=== PATIENT | male | born 1950 | race Caucasian/White ===

== ENCOUNTER 2017-02-09 11:32 | Outpatient (CLI) | payer MEDICARE, BC ==
[2017-02-09 14:56] VITALS: BP 130/76
--- NOTE | 2017-02-10 07:52 | CARDIAC PROCEDURE NOTE ---
DATE OF SERVICE: 02/09/2017 00:00:00 PROTOCOL: Modified Nathan. TIME: 15 minutes. ALDO: Less than -20. HEART RATE RESPONSE: 67 to maximum computer reading 175. It was in the 130s by EKG. Blood pressure response: 130/76 to maximum 162/70. EXAM CHANGES: None. REASON FOR STOPPING TEST: Patient's target heart rate had been exceeded. He says he could have kept going. ARRHYTHMIAS: Multiple PVCs detected. ST-SEGMENT CHANGES: There were ST-segment depressions of 1 mm or less in leads II, III, and aVF, and V3 through V5 at maximal exercise. SYMPTOMS: Patient did report an aching in his chest toward the beginning of the treadmill test, whic h then resolved. IMPRESSION: Mild symptoms, which resolved with further exercise. No significant EKG changes. CONCLUSION: Low-risk ETT. JOB #: [id number] EXT JOB #:[id number]
== END 2017-02-09 11:33 | disposition home or self-care (01) ==
LOC: DI 11:32
PROVIDERS: ATTEND Internal Medicine
DX: R00.2 Palpitations (principal); I49.3 Ventricular premature depolarization; I25.10 Atherosclerotic heart disease of native coronary artery without angina pectoris; R07.9 Chest pain, unspecified

== ENCOUNTER 2017-04-01 08:13 | Outpatient (CLI) | payer MEDICARE, BC | END 2017-04-01 08:14 | disposition home or self-care (01) | LOC: DI 08:13 | PROVIDERS: ATTEND Internal Medicine | DX: I49.3 Ventricular premature depolarization (principal); R07.89 Other chest pain; R00.1 Bradycardia, unspecified | CPT/HCPCS: 93306 ==

== ENCOUNTER 2017-06-01 11:02 | Day surgery (SDC) | payer MEDICARE, BC ==
[2017-06-01] MEDS ORDERED: LACTATED RINGERS 1,000 ML IV ONE (11:34)
[2017-06-01] MEDS ORDERED: MIDAZOLAM 2 MG/2 ML VIAL IVP ONE (13:44)
[2017-06-01] MEDS ORDERED: fentaNYL 100 MCG/2 ML VIAL IVP ONE (13:44)
[2017-06-01 13:58] VITALS: BP 107/59
== END 2017-06-01 11:03 | disposition home or self-care (01) ==
LOC: SDS 11:02
PROVIDERS: ATTEND Surgery
PROC: 0DBN8ZZ Excision of Sigmoid Colon, Via Natural or Artificial Opening Endoscopic (ICD-10-PCS; principal; 2017-06-01 12:00)
DX: Z12.11 Encounter for screening for malignant neoplasm of colon (principal); K63.5 Polyp of colon; K64.8 Other hemorrhoids; K57.30 Diverticulosis of large intestine without perforation or abscess without bleeding; I25.10 Atherosclerotic heart disease of native coronary artery without angina pectoris; Z95.5 Presence of coronary angioplasty implant and graft; E78.5 Hyperlipidemia, unspecified
CPT/HCPCS: 45380; J7120

== ENCOUNTER 2017-06-18 13:55 | Outpatient (CLI) | payer MEDICARE, BC ==
[2017-06-18 14:19] LABS: BASOPHILS % (AUTO) 0.8 %; EOSINOPHILS # (AUTO) 0.2 10^3/uL (0.0-0.7); EOSINOPHILS % (AUTO) 4.6 %; HCT - HEMATOCRIT 42.2 % (42.0-52.0); HGB - HEMOGLOBIN 14.3 g/dL (14.0-18.0); LYMPHOCYTES % (AUTO) 25.8 %; MEAN CORPUSCULAR HEMOGLOBIN 31.8 pg (27.0-31.0); MEAN CORPUSCULAR VOLUME 93.5 fL (80.0-94.0); MEAN PLATELET VOLUME 7.3 fL (7.4-11.4); MONOCYTES # (AUTO) 0.5 10^3/uL (0.0-1.0); MONOCYTES % (AUTO) 12.4 %; NEUTROPHILS # (AUTO) 2.1 10^3/uL (1.5-6.6); NEUTROPHILS % (AUTO) 56.4 %; NUCLEATED RED BLOOD CELLS AUTO 0.1 /100WBC; RED BLOOD COUNT 4.51 10^6/uL (4.70-6.10); RED CELL DISTRIBUTION WIDTH 13.5 % (12.0-15.0); UNCORRECTED WHITE BLOOD COUNT 3.8 x10^3/uL; WHITE BLOOD COUNT 3.8 x10^3/uL (4.8-10.8)
[2017-06-18 14:25] LABS: INR 0.9 (0.8-1.2); PT - PROTHROMBIN TIME 10.3 secs (9.9-12.6)
[2017-06-18 14:39] LABS: ALBUMIN/GLOBULIN RATIO 1.3 (1.0-2.2); BILIRUBIN,TOTAL 0.8 mg/dL (0.2-1.0); CALCIUM 9.8 mg/dL (8.5-10.3); CREATININE 1.2 mg/dL (0.6-1.2); POTASSIUM 4.2 mmol/L (3.5-5.0); TOTAL PROTEIN 7.8 g/dL (6.7-8.2)
== END 2017-06-18 13:56 | disposition home or self-care (01) ==
LOC: LAB 13:55
PROVIDERS: ATTEND Internal Medicine Cardiovascular Disease
DX: Z01.810 Encounter for preprocedural cardiovascular examination (principal); Z79.899 Other long term (current) drug therapy
CPT/HCPCS: 36415; 80053; 85025; 85610

== ENCOUNTER 2018-02-11 12:40 | Outpatient (CLI) | payer MEDICARE, BC ==
--- NOTE | 2018-02-11 18:26 | CARDIAC PROCEDURE NOTE ---
DATE OF SERVICE: 02/11/2018 Physician: ITZEL Aggarwal PCP: Brittnee Gomez M.D. DUMP ATTENDANT: Tushar Stephens M.D. PROCEDURE: ETT. PROCEDURE SYMPTOMS: Chest pain. PREVIOUS CARDIAC PROCEDURES: Yes. CURRENT SYMPTOMATOLOGY: None. CLINICAL HISTORY: A 67-year-old male with known coronary artery disease and stents. INITIAL RESTING VITAL SIGNS: BP 124/72, heart rate 41, height 66 inches, weight 150 pounds, BMI 24.21. PROCEDURE AND FINDINGS: Patient identity and date verified. Consent signed. The patient performed treadmill exercise using a modified Nathan treadmill with no treadmill elevation due to his arthritic heel. He completed 17 minutes 5 seconds and an estimated workload of 9.29 metabolic equivalent. His maximal blood pressure was 144/78 with a heart rate of 141 beats per minute or 92% of maximum predicted heart rate for age. The blood pressure response to exercise was within normal limits. The patient stopped because we achieved 80% heart rate. At peak exercise, the patient rated the maximal Miguel scale for rating perceived exertion as "somewhat hard." The resting ECG demonstrated normal sinus rhythm with lead II and aVF inverted T waves. Maximum ST segment depression was less than 0.5 and upsloping with exercise. He had occasional to frequent PVC ectopy. FINAL IMPRESSION 1. Good quality test until he started running and those test strips are difficult to interpret. 2. Negative stress electrocardiogram for ischemia by electrocardiographic criteria. 3. Nondiagnostic stress test clinically for angina. 4. Premature ventricular contraction ectopy. 5. [employer] functional class I. TD: 02/11/2018 15:35
[2018-02-11 19:15] VITALS: BP 120/80
== END 2018-02-11 12:41 | disposition home or self-care (01) ==
LOC: DI 12:40
PROVIDERS: ATTEND Internal Medicine Cardiovascular Disease
DX: R07.9 Chest pain, unspecified (principal); I25.10 Atherosclerotic heart disease of native coronary artery without angina pectoris; Z95.5 Presence of coronary angioplasty implant and graft
CPT/HCPCS: 93017

== ENCOUNTER 2018-05-03 18:52 | Outpatient (CLI) | payer MEDICARE, BC | END 2018-05-03 18:53 | disposition critical access hospital (66) | LOC: EMS 18:52 | PROVIDERS: ATTEND Surgery | DX: R55 Syncope and collapse (principal); R47.9 Unspecified speech disturbances; S00.91XA Abrasion of unspecified part of head, initial encounter; W18.30XA Fall on same level, unspecified, initial encounter; Y93.H1 Activity, digging, shoveling and raking; Y92.008 Other place in unspecified non-institutional (private) residence as the place of occurrence of the external cause | CPT/HCPCS: A0425; A0427 ==

== ENCOUNTER 2018-05-03 19:04 | Emergency (ER) | payer MEDICARE, BC ==
--- NOTE | 2018-05-03 19:15 | ED Physician Documentation ---
PD HPI Fall - Stated complaint Stated Complaint: ALOC - History obtained from History obtained from: Family (), EMS - History of Present Illness Mechanism of injury: Unknown (67-year-old gentleman with history of coronary disease on Plavix. His left at 5:00. He was drinking a little bit but she does not think more than normal. He may have fallen, he was working outside in the driveway. She found him laying in the driveway. He was alert and cooperative and follows simple commands but pretty much nonverbal.) Review of Systems Unable to obtain: Confused PD PAST MEDICAL HISTORY - Past Medical History Cardiovascular: High cholesterol, Atrial fibrillation GI: Other : Benign prostate hypertrophy HEENT: Chronic sinusitis Musculoskeletal: Osteopenia, Chronic back pain - Past Surgical History Ortho: Other Cardiovascular: Coronary stent - Present Medications Home Medications: Ambulatory Orders Medication Instructions Recorded Confirmed Acyclovir [Zovirax] 800 mg PO DAILY PRN 05/29/17 06/01/17 Ibuprofen 800 mg PO Q8HR 05/29/17 06/01/17 Nitroglycerin [Nitrostat] 0.4 mg SL ONCE 05/29/17 05/29/17 Temazepam [Restoril] 30 mg PO DAILY 05/29/17 06/01/17 - Allergies Allergies/Adverse Reactions: Allergies Allergy/AdvReac Type Severity Reaction Status Date / Time niacin AdvReac Unknown Verified 05/03/18 19:08 Cdqsrmt-Lom-Ymk Reductase AdvReac Unknown Verified 05/03/18 19:08 Inhibitor PD ED PE NORMAL - Vitals Vital signs reviewed: Yes - General General: Other (He is alert and in a c-collar. He is able to state his name, but cannot state the month or year. He does follow simple commands.) - HEENT HEENT: PERRL, Other (Some difficulty with extraocular movements, does not seem to lateralize but difficulty tracking. He has scrapes and dried blood over the right side of the forehead) - Neck Neck: No bony TTP (But maintained in a c-collar pending imaging given potential trauma) - Cardiac Cardiac: RRR, No murmur - Respiratory Respiratory: No respiratory distress, Clear bilaterally - Abdomen Abdomen: Normal bowel sounds, Soft, Non tender - Back Back: No CVA TTP, No spinal TTP - Derm Derm: Normal color, Warm and dry - Extremities Extremities: No deformity, No tenderness to palpate, Normal ROM s pain - Neuro Neuro: alterations supervisor 2-12 intact, Other (He is alert but minimally verbal. He is able to state his name, his first name anyway. Other than that he really is unable to verbalize anything. He moves all 4 extremities with good strength and follows commands in all 4 extremities.) Eye Opening: Spontaneous Motor: Obeys Commands Verbal: Inappropriate GCS Score: 13 Results - Vitals Vitals: Oxygen O2 Source Room air - Rads (name of study) CT Head Radiology: EMP read contemporaneously (Left-sided subdural subarachnoid and parenchymal hemorrhage with a little bit of right-sided subarachnoid hemorrhage. There is a coronally oriented fracture through the high posterior parietal timmy naina.) CT Cspien Radiology: EMP read contemporaneously (No C-spine fracture but there is a posterior right third rib fracture and a small right-sided pneumothorax) Ct Chest Radiology: EMP read contemporaneously (Moderate right-sided pneumothorax measuring 3.9 cm anteriorly with multiple right posterior and posterolateral rib fractures and a right inferior scapular fracture) 1v chest post chest tube Radiology: EMP read contemporaneously (Much improved appearance of pneumothorax) Procedures - Chest Tube (location) right anterior axillary line Chest tube preparation: Consent obtained (verbal from ), Sterile prep and drape Chest tube location: Right, Anterior axillary line Chest tube anesthesia: Lidocaine (8ml) Chest tube return: Air Chest tube after care: Confirmed with xray, Pt tolerated well PD MEDICAL DECISION MAKING - ED course ED course: 67-year-old gentleman after apparent fall with right-sided bruising. He is pretty much aphasic here but cooperative. He was taken directly over to CT as a trauma code which to my eye demonstrates left-sided likely traumatic subarachnoid hemorrhage and [facility] was paged for transfer at 7:25 PM. He was accepted by Dr. West to [facility] ED via airlift and they were mobilized., Dr. West recommended platelets, we do not have platelets on site and its about a 6-hour timeframe to get them. - Critical Care Time(min): 45 Time Includes: Direct patient care, Review records, Reassess patient, Document care, Coordinate care, Medical consult, Family consult for tx dec Data interpretation: Labs Procedures included in critical care time: Peripheral IV Procedures excluded from critical care time: Chest tube - Sepsis Event Vital Signs: Oxygen O2 Source Room air Departure - Departure Disposition: 02 Transfer Acute Care Hosp Clinical Impression: Subarachnoid hemorrhage, Subdural hemorrhage Rib fracture Qualifiers: Encounter type: initial encounter Rib fracture type: single rib Fracture type: closed Laterality: right Qualified Code(s): S22.31XA - Fracture of one rib, right side, initial encounter for closed fracture Pneumothorax Qualifiers: Pneumothorax type: traumatic Encounter type: initial encounter Qualified Code(s): S27.0XXA - Traumatic pneumothorax, initial encounter Alcohol intoxication Qualifiers: Complication of substance-induced condition: uncomplicated Qualified Code(s): F10.920 - Alcohol use, unspecified with intoxication, uncomplicated Right scapula fracture Qualifiers: Encounter type: initial encounter Scapula location: unspecified part of scapula Condition: Critical
[2018-05-03 19:25] LABS: BASOPHILS % (AUTO) 0.6 %; EOSINOPHILS # (AUTO) 0.2 10^3/uL (0.0-0.7); EOSINOPHILS % (AUTO) 5.6 %; HGB - HEMOGLOBIN 13.5 g/dL (14.0-18.0); LYMPHOCYTES # (AUTO) 1.6 10^3/uL (1.5-3.5); LYMPHOCYTES % (AUTO) 38.7 %; MEAN CORPUSCULAR HEMOGLOBIN 32.6 pg (27.0-31.0); MEAN CORPUSCULAR HGB CONC 34.2 g/dL (32.0-36.0); MEAN CORPUSCULAR VOLUME 95.4 fL (80.0-94.0); MEAN PLATELET VOLUME 7.2 fL (7.4-11.4); MONOCYTES # (AUTO) 0.5 10^3/uL (0.0-1.0); MONOCYTES % (AUTO) 11.5 %; NEUTROPHILS # (AUTO) 1.8 10^3/uL (1.5-6.6); NEUTROPHILS % (AUTO) 43.6 %; PLT - PLATELET COUNT 195 10^3/uL (130-450); RED BLOOD COUNT 4.15 10^6/uL (4.70-6.10); WHITE BLOOD COUNT 4.2 x10^3/uL (4.8-10.8)
[2018-05-03 19:31] LABS: INR 0.9 (0.8-1.2)
--- NOTE | 2018-05-03 19:42 | CT Report ---
Reason: trauma, fall Procedure Date: 05/03/2018 Accession Number: [id number] / [id number] Procedure: CT - Cervical Spine W/O CPT Code: FULL RESULT: EXAM: CT CERVICAL SPINE WITHOUT CONTRAST DATE: 05/03/2018 07:32 PM. HISTORY: Trauma, fall. COMPARISONS: None. TECHNIQUE: Thin-section axial images were acquired of the cervical spine without contrast. Post-processing: Coronal and sagittal reformats. Other: None. In accordance with CT protocol optimization, one or more of the following dose reduction techniques were utilized for this exam: automated exposure control, adjustment of mA and/or KV based on patient size, or use of iterative reconstructive technique. FINDINGS: Alignment: No evidence of dislocation. Bones: No evidence of cervical spine fracture. There is comminuted fracture of the posterior right third rib. Interspace Levels/Facets: There is mild mid and lower cervical spine degenerative disease. Spinal canal: No significant abnormalities are seen. Other: No evidence of prevertebral soft tissue swelling. There is a small right pneumothorax. IMPRESSION: 1. No evidence of cervical spine fracture or dislocation. 2. There is comminuted fracture through the posterior right third rib. There is a small right-sided pneumothorax. RADIA
--- NOTE | 2018-05-03 19:49 | CT Report ---
Reason: trauma, fall Procedure Date: 05/03/2018 Accession Number: [id number] / [id number] Procedure: CT - Head W/O CPT Code: FULL RESULT: EXAM: CT HEAD EXAM DATE: 05/03/2018 07:30 PM. CLINICAL HISTORY: Trauma, fall. COMPARISON: None. TECHNIQUE: Multiaxial CT images were obtained from the foramen magnum to the vertex. Reformats: Sagittal and coronal. IV contrast: None. In accordance with CT protocol optimization, one or more of the following dose reduction techniques were utilized for this exam: automated exposure control, adjustment of mA and/or KV based on patient size, or use of iterative reconstructive technique. FINDINGS: Parenchyma: There are areas of left temporal, frontal, and parietal contusion. No clearly acute loss of hernandez-white matter differentiation. There is no evidence of significant mass-effect. Extraaxial Spaces: There is a small amount of left holohemispheric subdural hematoma with a maximal thickness of approximately 0.4 cm. There are small amounts of left frontal and parietal subarachnoid hemorrhage. Ventricles: Normal in size and position. Sinuses and Orbits: Imaged paranasal sinuses, orbits, and mastoids show no significant abnormality. Bones: There is coronally oriented fracture extending through the parietal bones. Other: There is marked posterior scalp soft tissue swelling. IMPRESSION: 1. Mix of left-sided subdural, subarachnoid, and parenchymal hemorrhage within the temporal, frontal, and high parietal regions. Subdural thickness is up to 0.4 cm. There is a small amount of right-sided subarachnoid hemorrhage. 2. There is no evidence of significant mass-effect at this time. 3. There is posterior scalp soft tissue swelling. There is coronally oriented fracture extending through the high posterior parietal bones. RADIA The above findings were discussed with Richard Redman by Dr. Radha Armendariz at 19:48 hrs on 05/03/18.
[2018-05-03 19:55] LABS: ALBUMIN 4.2 g/dL (3.2-5.5); ALBUMIN/GLOBULIN RATIO 1.5 (1.0-2.2); BILIRUBIN,TOTAL 0.5 mg/dL (0.2-1.0); CALCIUM 8.9 mg/dL (8.5-10.3); CREATININE 1.1 mg/dL (0.6-1.2)
[2018-05-03] MEDS ORDERED: IOPAMIDOL-300 100 ML VIAL ONE (20:07)
[2018-05-03] MEDS ORDERED: MORPHINE 10 MG/ML VIAL IVP STA (20:09)
[2018-05-03] MEDS ORDERED: LIDOCAINE 1%-EPI 1:100000 30 ML MDV ONE (20:35)
[2018-05-03 20:50] VITALS: BP 153/85
[2018-05-03] MEDS ORDERED: IOPAMIDOL-300 100 ML VIAL IVP ONE (20:57)
--- NOTE | 2018-05-03 21:05 | CT Report ---
Reason: IV only, small ptx, rib frx Procedure Date: 05/03/2018 Accession Number: [id number] / [id number] Procedure: CT - Chest W/ CPT Code: FULL RESULT: EXAM: CT CHEST EXAM DATE: 05/03/2018 08:25 PM. CLINICAL HISTORY: IV only, small ptx, rib frx. COMPARISONS: None. TECHNIQUE: Routine helical CT imaging was performed through the chest. IV contrast: 100 cc Isovue-300. Reconstructions: Coronal and sagittal. In accordance with CT protocol optimization, one or more of the following dose reduction techniques were utilized for this exam: automated exposure control, adjustment of mA and/or KV based on patient size, or use of iterative reconstructive technique. FINDINGS: Lungs/Pleura: Right pneumothorax measuring about 3.9 cm at the right middle lobe level. Bibasilar atelectasis. Right subpleural nodule measuring 5 mm on series 3 image 33. Trace right pleural effusion. Otherwise clear. Mediastinum: Mild cardiomegaly. No pericardial effusion. At least 2 vessel coronary artery calcification. No lymphadenopathy. Bones: Right posterior third rib fracture. Right posterior to lateral fifth, sixth, and possibly seventh rib fractures. Fracture of right inferior scapular wing with comminution. Anterior vertebral body height loss of T4 and T5 appears old. Visualized Abdomen: See separate report. Other: Minimal sub-cutaneous emphysema posteriorly near the patient's fractures. IMPRESSION: 1. Moderate right pneumothorax measuring 3.9 cm anteriorly. Associated bibasilar atelectasis. 2. Multiple right posterior to posterolateral rib fractures and right inferior scapular fracture. 3. Mild cardiomegaly and other chronic or incidental findings. RADIA
--- NOTE | 2018-05-03 21:07 | XRAY Report ---
Reason: post chest tube Procedure Date: 05/03/2018 Accession Number: [id number] / [id number] Procedure: XR - Chest 1 View X-Ray CPT Code: 12399 FULL RESULT: EXAM: CHEST RADIOGRAPHY EXAM DATE: 05/03/2018 08:59 PM. CLINICAL HISTORY: Post chest tube. COMPARISON: None. TECHNIQUE: 1 view. FINDINGS: Lungs/Pleura: Trace remaining pneumothorax on the right following chest tube placement. No consolidation, definite effusion, or acute infiltrate. Mediastinum: Borderline cardiomegaly. Other: Right sixth and seventh rib fractures visible. Other fractures not well seen. IMPRESSION: 1. Resolving pneumothorax following chest tube placement. 2. Right sixth and seventh rib fractures. RADIA
--- NOTE | 2018-05-03 21:13 | CT Report ---
Reason: IV only, trauma Procedure Date: 05/03/2018 Accession Number: [id number] / [id number] Procedure: CT - Abdomen/Pelvis W/ CPT Code: FULL RESULT: EXAM: CT ABDOMEN AND PELVIS EXAM DATE: 05/03/2018 08:25 PM. CLINICAL HISTORY: Trauma, pain. COMPARISONS: None. TECHNIQUE: Routine helical CT imaging was performed through the abdomen and pelvis. IV contrast: ISOVUE 300 100mL. Enteric contrast: No. Reconstructions: Coronal and sagittal. In accordance with CT protocol optimization, one or more of the following dose reduction techniques were utilized for this exam: automated exposure control, adjustment of mA and/or KV based on patient size, or use of iterative reconstructive technique. FINDINGS: Lung Bases: See separate report. Liver: Normal. No masses. Gallbladder/Bile Ducts: Unremarkable. Spleen: Normal. Pancreas: Normal. Adrenal Glands: Normal. Kidneys: Normal. No masses or hydronephrosis. Peritoneal Cavity/Bowel: Mild to moderate colonic diverticulosis. No free fluid, free air or adenopathy. No masses or acute inflammatory process. The appendix is well visualized and normal. Pelvic Organs: Normal. The bladder and visualized pelvic organs are within normal limits. Vasculature: No aneurysms or other significant abnormality. Bones: No significant abnormality. Other: None. IMPRESSION: Mild to moderate diverticulosis. No acute disease. RADIA
--- NOTE | 2018-05-03 21:15 | CT Report ---
Reason: trauma, fall Procedure Date: 05/03/2018 Accession Number: [id number] / [id number] Procedure: CT - Lumbar Spine W/O CPT Code: FULL RESULT: EXAM: CT LUMBAR SPINE WITHOUT CONTRAST EXAM DATE: 05/03/2018 08:25 PM. CLINICAL HISTORY: Trauma, fall. COMPARISONS: None. TECHNIQUE: Thin-section axial images were acquired of the lumbar spine from T12 to S1 without contrast. Post-processing: Coronal and sagittal reformats. Other: None. In accordance with CT protocol optimization, one or more of the following dose reduction techniques were utilized for this exam: automated exposure control, adjustment of mA and/or KV based on patient size, or use of iterative reconstructive technique. FINDINGS: Alignment: No scoliosis or spondylolisthesis. Bones: 5 lumbar vertebrae. No fractures or bone lesions. Disk Levels/Facets: Disk space narrowing at L5-S1 with vacuum phenomenon. Other disk spaces well preserved. No significant degenerative changes. Musculature: Unremarkable. Other: See separate reports. IMPRESSION: No acute bony disease. RADIA
--- NOTE | 2018-05-03 21:33 | CT Report ---
Reason: trauma, fall Procedure Date: 05/03/2018 Accession Number: [id number] / [id number] Procedure: CT - Thoracic Spine W/O CPT Code: FULL RESULT: EXAM: CT THORACIC SPINE RECONSTRUCTIONS EXAM DATE: 05/03/2018 09:08 PM. CLINICAL HISTORY: Trauma, fall. COMPARISONS: CT chest abdomen pelvis performed concurrently. TECHNIQUE: Thin-section axial images were acquired of the thoracic spine from T1 (with partial exclusion of posterior elements) to T12 without additional contrast. Post-processing: Coronal and sagittal reformats. Other: None. In accordance with CT protocol optimization, one or more of the following dose reduction techniques were utilized for this exam: automated exposure control, adjustment of mA and/or KV based on patient size, or use of iterative reconstructive technique. FINDINGS: Alignment: Minimal left convex upper and right convex mid thoracic scoliosis. No subluxation. Mild upper thoracic kyphosis. Bones: Chronic-appearing mild anterior wedge compression deformities of T4 and T5 vertebral bodies without identified acute fracture line. Other vertebral bodies are normal in height. There is a minimally displaced fracture of the right posterior third rib. There is a minimally displaced fracture of the posterior lateral right fifth rib. There is a minimally displaced fracture of the right posterior lateral sixth rib. Disk Levels/Facets: Disk space heights are preserved. There is minimal anterior endplate osteophyte formation at T3-T4, T4-T5, and T5-T6. There is mild disk space calcification at T3-T4. Mild bilateral facet osteoarthritis at T3-T4. Musculature: Normal. No fatty atrophy. Other: Moderate right pneumothorax. Mild right and minimal left dependent atelectasis. IMPRESSION: 1. Mild anterior wedge compression deformities of T4 and T5 vertebral bodies which appear chronic. 2. No acute fracture is identified in the thoracic spine. 3. Minimally displaced fractures of the right posterior third and right posterior lateral fifth and sixth ribs. 4. Moderate right pneumothorax. RADIA
== END 2018-05-03 21:30 | disposition short-term general hospital (02) ==
LOC: EDUNIT# → ED 19:04
DX: I62.00 Nontraumatic subdural hemorrhage, unspecified (principal); I60.9 Nontraumatic subarachnoid hemorrhage, unspecified; S22.31XA Fracture of one rib, right side, initial encounter for closed fracture; S27.0XXA Traumatic pneumothorax, initial encounter; W19.XXXA Unspecified fall, initial encounter; F10.920 Alcohol use, unspecified with intoxication, uncomplicated; E78.00 Pure hypercholesterolemia, unspecified; I25.10 Atherosclerotic heart disease of native coronary artery without angina pectoris; Z95.5 Presence of coronary angioplasty implant and graft
CPT/HCPCS: 32551; 36415; 70450; 71045; 71260; 72125; 72128; 72131; 74177; 80053; 83690; 85025; 85610; 96374; 99284; 99291; Q9967; 80320; 99285

== ENCOUNTER 2018-06-07 09:49 | Emergency (ER) | payer MEDICARE, BC ==
--- NOTE | 2018-06-07 10:40 | CT Report ---
Reason: confusion Procedure Date: 06/07/2018 Accession Number: [id number] / [id number] Procedure: CT - Head W/O CPT Code: FULL RESULT: EXAM: CT HEAD EXAM DATE: 06/07/2018 10:12 AM. CLINICAL HISTORY: Confusion. COMPARISON: 05/03/2018 TECHNIQUE: Multiaxial CT images were obtained from the foramen magnum to the vertex. Reformats: Sagittal and coronal. IV contrast: None. In accordance with CT protocol optimization, one or more of the following dose reduction techniques were utilized for this exam: automated exposure control, adjustment of mA and/or KV based on patient size, or use of iterative reconstructive technique. FINDINGS: Parenchyma: No acute intraparenchymal hemorrhage. The usual anticipated evolutionary changes have occurred in the areas of subdural, subarachnoid and multiple parenchymal hemorrhage seen on the 05/03/[address] Extraaxial Spaces: Normal for age. No acute or significant residual subdural or epidural collections identified. Ventricles: Normal in size and position. Sinuses and Orbits: Postsurgical changes paranasal sinuses with small retention cyst left maxillary sinus Bones: Bilateral parietal bone nondisplaced fracture as before. New right frontal bur hole. Other: None. IMPRESSION: No acute intracranial findings. The usual anticipated evolutionary changes have occurred in the areas of subdural, subarachnoid, and parenchymal hemorrhages seen on the 05/03/[address] New right frontal debra hole. Nondisplaced parietal bone fractures as before. Postsurgical changes paranasal sinuses. RADIA.
[2018-06-07 10:42] LABS: BASOPHILS % (AUTO) 0.4 %; EOSINOPHILS # (AUTO) 0.1 10^3/uL (0.0-0.7); EOSINOPHILS % (AUTO) 2.5 %; HGB - HEMOGLOBIN 13.2 g/dL (14.0-18.0); LYMPHOCYTES # (AUTO) 0.6 10^3/uL (1.5-3.5); LYMPHOCYTES % (AUTO) 10.6 %; MEAN CORPUSCULAR HEMOGLOBIN 31.9 pg (27.0-31.0); MEAN CORPUSCULAR VOLUME 93.9 fL (80.0-94.0); MEAN PLATELET VOLUME 7.7 fL (7.4-11.4); MONOCYTES # (AUTO) 0.5 10^3/uL (0.0-1.0); MONOCYTES % (AUTO) 8.6 %; NEUTROPHILS # (AUTO) 4.3 10^3/uL (1.5-6.6); NEUTROPHILS % (AUTO) 77.9 %; PLT - PLATELET COUNT 189 10^3/uL (130-450); RED BLOOD COUNT 4.15 10^6/uL (4.70-6.10); RED CELL DISTRIBUTION WIDTH 13.3 % (12.0-15.0); WHITE BLOOD COUNT 5.6 x10^3/uL (4.8-10.8)
[2018-06-07 10:48] LABS: INR 1.1 (0.8-1.2); PT - PROTHROMBIN TIME 11.9 secs (9.9-12.6)
--- NOTE | 2018-06-07 10:55 | ED Physician Documentation ---
History of Present Illness - Stated complaint Stated Complaint: TREMORS/HALLUCINATIONS - Chief complaint Chief Complaint: General - Additonal information Additional information: 67-year-old male was brought in for evaluation of hallucinations which have developed over the past several days. The patient recently endured a traumatic brain injury And was treated at [facility]. Since returning home the patient has been slowly improving. The patient's Gardiner catheter was recently removed and he was started on Bactrim this past week. Since starting the Bactrim the patient has had hallucinations and been more confused especially at night per the . No new trauma. The patient denies any focal motor weakness or sensory changes. No fevers or chills. Symptoms are described as moderate. No relieving factors. Review of Systems Constitutional: denies: Fever Eyes: denies: Discharge Ears: denies: Ear pain Nose: denies: Congestion Throat: denies: Sore throat Cardiac: denies: Chest pain / pressure Respiratory: denies: Cough GI: denies: Abdominal Pain : denies: Dysuria Skin: denies: Rash Musculoskeletal: denies: Neck pain Neurologic: reports: Confused Psychiatric: reports: Hallucinations PD PAST MEDICAL HISTORY - Past Medical History Cardiovascular: High cholesterol, Atrial fibrillation Neuro: Head injury GI: Other : Benign prostate hypertrophy HEENT: Chronic sinusitis Musculoskeletal: Osteopenia, Chronic back pain - Past Surgical History Past Surgical History: Yes Ortho: Other Cardiovascular: Coronary stent Neuro: Other - Present Medications Home Medications: Ambulatory Orders Medication Instructions Recorded Confirmed Acyclovir [Zovirax] 800 mg PO DAILY PRN 05/29/17 06/01/17 Ibuprofen 800 mg PO Q8HR 05/29/17 06/01/17 Nitroglycerin [Nitrostat] 0.4 mg SL ONCE 05/29/17 05/29/17 Acetaminophen 650 mg PO PRN 06/07/18 Amantadine HCl [Amantadine] 200 mg PO BID 06/07/18 06/07/18 Aspirin 06/07/18 Cephalexin [Keflex] 500 mg PO BID #14 capsule 06/07/18 Doxazosin [Cardura] 1 mg PO DAILY 06/07/18 06/07/18 Finasteride 06/07/18 Melatonin 6 mg PO 06/07/18 Multivitamin [Multiple Vitamins] 1 tab PO DAILY 06/07/18 06/07/18 Senna [Senokot] 17.2 mg PO BID 06/07/18 06/07/18 traZODone [Desyrel] 50 mg PO DAILY 06/07/18 06/07/18 - Allergies Allergies/Adverse Reactions: Allergies Allergy/AdvReac Type Severity Reaction Status Date / Time niacin AdvReac Unknown Verified 06/07/18 10:08 Ooprifk-Lrr-Ggu Reductase AdvReac Unknown Verified 06/07/18 10:08 Inhibitor - Social History Does the pt smoke?: No Smoking Status: Never smoker Does the pt drink ETOH?: Yes Does the pt have substance abuse?: No - Immunizations Immunizations are current?: Yes PD ED PE NORMAL - General General: No acute distress, Other (67-year-old male who is alert and able to answer all my questions appropriately and appears to be in no acute distress) - HEENT HEENT: Atraumatic, PERRL, EOMI, Ears normal - Neck Neck: Supple, no meningeal sign - Cardiac Cardiac: RRR, Strong equal pulses - Respiratory Respiratory: No respiratory distress - Abdomen Abdomen: Soft, Non tender - Derm Derm: Normal color - Extremities Extremities: No deformity, Normal ROM s pain - Neuro Neuro: Other (The patient's alert, the patient is able to answer questions appropriately. The patient does get confused easily. The patient has no acute focal motor changes. The patient appears to be at his neurologic baseline) PD ED PE EXPANDED - Psych Psych: Visual hallucinations. No: Suicidal, Homicidal, Withdrawn Results - Vitals Vitals: Vital Signs - 24 hr 06/07/18 06/07/18 06/07/18 10:01 11:00 12:25 Temperature 36.5 C Heart Rate 108 H 65 66 Respiratory 20 20 25 H Rate Blood Pressure 134/116 H 116/78 121/61 O2 Saturation 98 98 97 Oxygen O2 Source Room air - EKG (time done) 10:26 Rate: Rate (enter#) Rhythm: NSR Intervals: QRS normal Ischemia: Non specific changes Other comments: Other comments (Sinus with multiple PACs and no acute ischemic changes) - Labs Labs: Laboratory Tests 06/07/18 06/07/18 06/07/18 10:30 10:30 10:30 WBC 5.6 RBC 4.15 L Hgb 13.2 L Hct 38.9 L MCV 93.9 MCH 31.9 H MCHC 34.0 RDW 13.3 Plt Count 189 MPV 7.7 Neut # (Auto) 4.3 Lymph # (Auto) 0.6 L [place] # (Auto) 0.5 Eos # (Auto) 0.1 Baso # (Auto) 0.0 Absolute Nucleated RBC 0.00 Nucleated RBC % 0.0 PT 11.9 INR 1.1 APTT 28.1 Sodium 138 Potassium 4.1 Chloride 101 Carbon Dioxide 25 Anion Gap 12.0 BUN 22 H Creatinine 1.6 H Estimated GFR (MDRD) 43 L Glucose 96 Calcium 9.5 Total Bilirubin 0.6 AST 20 ALT 16 Alkaline Phosphatase 121 Total Creatine Kinase 56 Troponin I Total Protein 7.4 Albumin 4.0 Globulin 3.4 Albumin/Globulin Ratio 1.2 Lipase 24 TSH Urine Color Urine Clarity Urine pH Ur Specific [place] Urine Protein Urine Glucose (UA) Urine Ketones Urine Occult Blood Urine Nitrite Urine Bilirubin Urine Urobilinogen Ur Leukocyte Esterase Ur Microscopic Review Urine Culture Comments Salicylates < 6.0 Urine Opiates Screen Ur Oxycodone Screen Urine Methadone Screen Ur Propoxyphene Screen Acetaminophen < 10 L Ur Barbiturates Screen Ur Tricyclics Screen Ur Phencyclidine Scrn Ur Amphetamine Screen U Methamphetamines Scrn U Benzodiazepines Scrn Urine Cocaine Screen U Cannabinoids Screen Ethyl Alcohol < 5.0 06/07/18 06/07/18 06/07/18 10:30 10:30 11:36 WBC RBC Hgb Hct MCV MCH MCHC RDW Plt Count MPV Neut # (Auto) Lymph # (Auto) [place] # (Auto) Eos # (Auto) Baso # (Auto) Absolute Nucleated RBC Nucleated RBC % PT INR APTT Sodium Potassium Chloride Carbon Dioxide Anion Gap BUN Creatinine Estimated GFR (MDRD) Glucose Calcium Total Bilirubin AST ALT Alkaline Phosphatase Total Creatine Kinase Troponin I < 0.04 Total Protein Albumin Globulin Albumin/Globulin Ratio Lipase TSH 0.88 Urine Color Urine Clarity Urine pH Ur Specific [place] Urine Protein Urine Glucose (UA) Urine Ketones Urine Occult Blood Urine Nitrite Urine Bilirubin Urine Urobilinogen Ur Leukocyte Esterase Ur Microscopic Review Urine Culture Comments Salicylates Urine Opiates Screen NEGATIVE Ur Oxycodone Screen NEGATIVE Urine Methadone Screen NEGATIVE Ur Propoxyphene Screen NEGATIVE Acetaminophen Ur Barbiturates Screen NEGATIVE Ur Tricyclics Screen NEGATIVE Ur Phencyclidine Scrn NEGATIVE Ur Amphetamine Screen NEGATIVE U Methamphetamines Scrn POSITIVE H U Benzodiazepines Scrn POSITIVE H Urine Cocaine Screen NEGATIVE U Cannabinoids Screen NEGATIVE Ethyl Alcohol 06/07/18 11:36 WBC RBC Hgb Hct MCV MCH MCHC RDW Plt Count MPV Neut # (Auto) Lymph # (Auto) [place] # (Auto) Eos # (Auto) Baso # (Auto) Absolute Nucleated RBC Nucleated RBC % PT INR APTT Sodium Potassium Chloride Carbon Dioxide Anion Gap BUN Creatinine Estimated GFR (MDRD) Glucose Calcium Total Bilirubin AST ALT Alkaline Phosphatase Total Creatine Kinase Troponin I Total Protein Albumin Globulin Albumin/Globulin Ratio Lipase TSH Urine Color DK. ORANGE Urine Clarity INTERFERENCES Urine pH 6.0 Ur Specific [place] >=1.030 H Urine Protein Urine Glucose (UA) Urine Ketones Urine Occult Blood NEGATIVE Urine Nitrite Urine Bilirubin COLOR INTERFERENCE Urine Urobilinogen Ur Leukocyte Esterase Ur Microscopic Review NOT INDICATED Urine Culture Comments NOT INDICATED Salicylates Urine Opiates Screen Ur Oxycodone Screen Urine Methadone Screen Ur Propoxyphene Screen Acetaminophen Ur Barbiturates Screen Ur Tricyclics Screen Ur Phencyclidine Scrn Ur Amphetamine Screen U Methamphetamines Scrn U Benzodiazepines Scrn Urine Cocaine Screen U Cannabinoids Screen Ethyl Alcohol - Rads (name of study) CXR Radiology: Final report received (IMPRESSION: Suspected posttraumatic findings as above. New masslike projections over the right hemithorax likely representing bony calluses from rib fracture healing. Lung metastases are in question. Findings could be clarified by CT. ), See rad report CT head Radiology: Final report received, See rad report (IMPRESSION: No acute intracranial findings. The usual anticipated evolutionary changes have occurred in the areas of subdural, subarachnoid, and parenchymal hemorrhages seen on the 05/03/[address] New right frontal debra hole. Nondisplaced parietal bone fractures as before.Postsurgical changes paranasal sinuses. ) PD MEDICAL DECISION MAKING - ED course ED course: The patient's symptoms seem to be secondary to taking Bactrim. The patient has been appropriate throughout his course in the emergency department. 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 The family would prefer to go home and stop the Bactrim. This course appears appropriate at this time. The patient will be changed to Keflex for the urinary tract infection. I discussed with the family the incidental findings of the chest x-ray, which most likely is secondary to the recent trauma. They will get a outpatient CT to further delineate this. I discussed warning signs and recommended returning to the emergency department immediately for worsening or concerns. Departure - Departure Disposition: 01 Home, Self Care Clinical Impression: Delirium, Cystitis Condition: Good Instructions: Delirium Care, Delirium Follow-Up: Brittnee Gomez MD [Primary Care Provider] - Within 3 Days Prescriptions: Cephalexin [Keflex] 500 mg PO BID #14 capsule Comments: Please stop taking the Bactrim that was prescribed for your urinary tract infection Please follow-up with primary care this coming week. Your CT scan showed an abnormality in your chest which most likely is the healing ribs. The radiologist recommended a CT scan to further evaluate this area. Please ask your primary care to arrange this as an outpatient. Please return to the emergency department for any worsening or any concerns Discharge Date/Time: 06/07/18 13:17
[2018-06-07 10:58] LABS: ACETAMINOPHEN < 10 ug/mL (10-30); ALBUMIN/GLOBULIN RATIO 1.2 (1.0-2.2); ALKALINE PHOSPHATASE 121 IU/L (42-121); ALT ALANINE AMINOTRANSFERASE 16 IU/L (10-60); AST ASPARTATE AMINOTRANSFERASE 20 IU/L (10-42); BILIRUBIN,TOTAL 0.6 mg/dL (0.2-1.0); BUN - BLOOD UREA NITROGEN 22 mg/dL (6-20); CALCIUM 9.5 mg/dL (8.5-10.3); CARBON DIOXIDE - CO2 25 mmol/L (21-32); CHLORIDE 101 mmol/L (101-111); CK- CREATINE KINASE 56 IU/L (22-269); CREATININE 1.6 mg/dL (0.6-1.2); GFR - MDRD 43 (>89); GLUCOSE 96 mg/dL (70-100); LIPASE 24 U/L (22-51); SALICYLATE < 6.0 mg/dL; SODIUM 138 mmol/L (135-145); TOTAL PROTEIN 7.4 g/dL (6.7-8.2)
--- NOTE | 2018-06-07 11:00 | XRAY Report ---
Reason: confusion Procedure Date: 06/07/2018 Accession Number: [id number] / [id number] Procedure: XR - Chest 2 View X-Ray CPT Code: 96237 FULL RESULT: EXAM: CHEST RADIOGRAPHY EXAM DATE: 06/07/2018 10:11 AM. CLINICAL HISTORY: Confusion. COMPARISON: CHEST 1 VIEW 05/03/2018 8:46 PM CHEST W/ 05/03/2018 8:25 PM. TECHNIQUE: 2 views. FINDINGS: Lungs/Pleura: Apparent masses projecting over the right hemithorax are new compared to the recent chest radiograph but may relate to healing of known right rib fractures. Suggestion of loculated small right pleural effusion, and possibly posttraumatic; no pneumothorax. Normal volumes. Mediastinum: Heart and mediastinal contours are unremarkable. Other: Interval removal of previously seen chest drain. IMPRESSION: Suspected posttraumatic findings as above. New masslike projections over the right hemithorax likely representing bony calluses from rib fracture healing. Lung metastases are in question. Findings could be clarified by CT. RADIA
[2018-06-07 11:41] LABS: MUDS CUTOFF CONCENTRATIONS CUTOFF CONC BELOW:
[2018-06-07 11:52] LABS: OCCULT BLOOD,URINE NEGATIVE (NEGATIVE)
[2018-06-07 11:54] LABS: BILIRUBIN,URINE COLOR INTERFERENCE (NEGATIVE)
[2018-06-07 11:55] LABS: CLARITY,URINE INTERFERENCES (CLEAR)
[2018-06-07 11:59] LABS: COCAINE SCREEN URINE NEGATIVE (NEGATIVE)
[2018-06-07 12:00] LABS: AMPHETAMINE SCREEN,URINE NEGATIVE (NEGATIVE); BENZODIAZEPINES SCREEN, URINE POSITIVE (NEGATIVE); METHADONE SCREEN, URINE NEGATIVE (NEGATIVE); METHAMPHETAMINES SCREEN, URINE POSITIVE (NEGATIVE); OPIATE SCREEN, URINE NEGATIVE (NEGATIVE); OXYCODONE SCREEN, URINE NEGATIVE (NEGATIVE); PROPOXYPHENE SCREEN, URINE NEGATIVE (NEGATIVE); TRICYCLIC ANTIDEPRESSANT,URINE NEGATIVE (NEGATIVE)
[2018-06-07 12:26] VITALS: BP 121/61
[2018-06-07] MEDS ORDERED: cephALEXin 250 MG CAPSULE PO STA (13:06)
== END 2018-06-07 13:17 | disposition home or self-care (01) ==
LOC: ED 09:49
DX: R41.0 Disorientation, unspecified (principal); N30.90 Cystitis, unspecified without hematuria; E78.00 Pure hypercholesterolemia, unspecified; R91.8 Other nonspecific abnormal finding of lung field; Z95.5 Presence of coronary angioplasty implant and graft; Z87.820 Personal history of traumatic brain injury
CPT/HCPCS: 36415; 70450; 71046; 80053; 81003; 82550; 83690; 84443; 84484; 85025; 85610; 85730; 93005; 99284; A9270; 80306; 80307; 80320; 80329; 81001; 87086

== ENCOUNTER 2018-06-29 11:36 | Outpatient (CLI) | payer MEDICARE, BC ==
[2018-06-29] MEDS ORDERED: IOVERSOL 320 100 ML VIAL IVP ONE ×2 (11:41→17:32)
--- NOTE | 2018-06-29 14:09 | CT Report ---
Reason: ABNORMAL CXR Procedure Date: 06/29/2018 Accession Number: [id number] / [id number] Procedure: CT - Chest W/ CPT Code: FULL RESULT: EXAM: CT CHEST EXAM DATE: 06/29/2018 12:09 PM. CLINICAL HISTORY: Abnormal chest x-ray. Recent pneumothorax. COMPARISONS: Chest CT with contrast 05/03/2018 8:25 PM. TECHNIQUE: Routine helical CT imaging was performed through the chest. IV contrast: 72 mL Optiray 320. Reconstructions: Coronal and sagittal. In accordance with CT protocol optimization, one or more of the following dose reduction techniques were utilized for this exam: automated exposure control, adjustment of mA and/or KV based on patient size, or use of iterative reconstructive technique. FINDINGS: Lungs/Pleura: There is a 6 mm right lower lobe nodule image 41 series 4. Previously seen pneumothorax has resolved. There is no consolidation. No pleural effusion. Mediastinum: Normal. No adenopathy or masses. The heart and great vessels are normal. Bones: There are compression fractures at T4 and T5, proximally 30% loss of height and approximately 50% loss of height respectively, unchanged from 2 months ago. No aggressive osseous lesions. Visualized Abdomen: Unremarkable. Other: None. IMPRESSION: Interval resolution of previously seen pneumothorax. Per Fleischner Society recommendations, the 6 mm pulmonary nodule warrants a follow-up CT in 6-12 months in the high risk population or a 12 month follow-up CT in the low risk population. RADIA
== END 2018-06-29 11:37 | disposition home or self-care (01) ==
LOC: DI 11:36
PROVIDERS: ATTEND Internal Medicine
DX: R91.1 Solitary pulmonary nodule (principal)
CPT/HCPCS: 71260; Q9967

== ENCOUNTER 2019-11-30 14:50 | Outpatient (CLI) | payer MEDICARE, BC ==
--- NOTE | 2019-11-30 17:31 | MRI Report ---
Reason: LT SHOULDER PAIN Procedure Date: 11/30/2019 Accession Number: [id number] / [id number] Procedure: MRI - Shoulder LT W/O CPT Code: Final Report FULL RESULT: EXAM: LEFT SHOULDER MRI WITHOUT CONTRAST EXAM DATE: 11/30/2019 04:04 PM. CLINICAL HISTORY: Left shoulder pain. COMPARISON: None. TECHNIQUE: Multiplanar, multisequence T1-weighted and fluid-sensitive sequences of the shoulder without contrast. Other: None. FINDINGS: Rotator cuff: Mild to moderate patchy increased T2 signal involving the distal supraspinatus and upper fibers of the subscapularis. Some fraying at the distal articular and bursal surface anteriorly. No definitive measurable supraspinatus tear visualized. Ill-defined low-grade distal articular surface tear of the upper subscapularis approximately 6 x 5 mm. No evidence of a high-grade or full-thickness rotator cuff tear. No rotator cuff muscle atrophy or fatty replacement. Long head biceps tendon: Intact demonstrating normal course, signal and morphology. Labrum: Linear high signal consistent with a small tear at the posterior-superior labrum. Otherwise intact. No paralabral cyst formation. Bones and articular surfaces: Mild cartilage thinning and surface irregularity over the central aspect of the humeral head articular surface. Acromioclavicular joint: Slight widening of the acromioclavicular joint space. Type II acromion. Coracoclavicular ligaments appear intact. IMPRESSION: 1. Mild to moderate tendinosis involving the distal supraspinatus and upper subscapularis. 2. Low-grade distal articular surface tear involving upper fibers of the subscapularis. No evidence of a high-grade or full-thickness rotator cuff tear. 3. Linear high signal suspicious for a small tear at the posterior-superior labrum. 4. Mild widening of the acromioclavicular joint space may represent a chronic grade 2 injury. RADIA
== END 2019-11-30 14:51 | disposition home or self-care (01) ==
LOC: DI 14:50
PROVIDERS: ATTEND Internal Medicine
DX: M75.102 Unspecified rotator cuff tear or rupture of left shoulder, not specified as traumatic (principal); M67.912 Unspecified disorder of synovium and tendon, left shoulder

== ENCOUNTER 2022-06-11 11:56 | Outpatient (CLI) | payer MEDICARE, BC ==
[2022-06-11 17:53] LABS: BASOPHILS % (AUTO) 0.8 %; EOSINOPHILS # (AUTO) 0.1 10^3/uL (0.0-0.7); EOSINOPHILS % (AUTO) 3.6 %; HCT - HEMATOCRIT 45.1 % (42.0-52.0); HGB - HEMOGLOBIN 14.3 g/dL (14.0-18.0); LYMPHOCYTES # (AUTO) 0.8 10^3/uL (1.5-3.5); LYMPHOCYTES % (AUTO) 22.4 %; MEAN CORPUSCULAR HEMOGLOBIN 30.5 pg (27.0-31.0); MEAN CORPUSCULAR HGB CONC 31.7 g/dL (32.0-36.0); MEAN CORPUSCULAR VOLUME 96.2 fL (80.0-94.0); MONOCYTES # (AUTO) 0.4 10^3/uL (0.0-1.0); MONOCYTES % (AUTO) 10.8 %; NEUTROPHILS # (AUTO) 2.2 10^3/uL (1.5-6.6); NEUTROPHILS % (AUTO) 62.1 %; PLT - PLATELET COUNT 194 10^3/uL (130-450); RED BLOOD COUNT 4.69 10^6/uL (4.70-6.10); RED CELL DISTRIBUTION WIDTH 12.8 % (12.0-15.0); WHITE BLOOD COUNT 3.6 x10^3/uL (4.8-10.8)
[2022-06-11 18:11] LABS: ALBUMIN 4.3 g/dL (3.2-5.5); ALBUMIN/GLOBULIN RATIO 1.4 (1.0-2.2); ALKALINE PHOSPHATASE 49 IU/L (42-121); ALT ALANINE AMINOTRANSFERASE 16 IU/L (10-60); AST ASPARTATE AMINOTRANSFERASE 23 IU/L (10-42); BILIRUBIN,TOTAL 0.7 mg/dL (0.2-1.0); BUN - BLOOD UREA NITROGEN 21 mg/dL (6-20); CALCIUM 9.5 mg/dL (8.5-10.3); CARBON DIOXIDE - CO2 29 mmol/L (21-32); CHLORIDE 104 mmol/L (101-111); CHOL/HDL RATIO 3.3 (<5.0); CHOLESTEROL 277 mg/dL; GFR - MDRD 74 (>89); GLUCOSE 87 mg/dL (70-100); HDL CHOLESTEROL 83 mg/dL; LDL CHOLESTEROL,CALCULATED 181 mg/dL; LDL/HDL RATIO 2.2 (<3.6); POTASSIUM 4.7 mmol/L (3.5-5.0); SODIUM 142 mmol/L (135-145); TOTAL PROTEIN 7.4 g/dL (6.7-8.2); TRIGLYCERIDES 64 mg/dL; VLDL CHOLESTEROL 13 mg/dL
[2022-06-11 18:26] LABS: THYROID STIMULATING HORMONE 1.48 uIU/mL (0.34-5.60)
== END 2022-06-11 11:57 | disposition home or self-care (01) ==
LOC: LAB.N 11:56
PROVIDERS: ATTEND Internal Medicine
DX: F10.10 Alcohol abuse, uncomplicated (principal); G47.9 Sleep disorder, unspecified; F07.81 Postconcussional syndrome; R41.840 Attention and concentration deficit; I25.10 Atherosclerotic heart disease of native coronary artery without angina pectoris; E78.5 Hyperlipidemia, unspecified; Z12.5 Encounter for screening for malignant neoplasm of prostate
CPT/HCPCS: 36415; 80053; 80061; 84443; 85025; G0103; 83721; 84153

== ENCOUNTER 2023-01-27 16:54 | Outpatient (CLI) | payer MEDICARE, OTHER ==
--- NOTE | 2023-01-27 17:31 | CT Report ---
PROCEDURE: HEAD WO INDICATIONS: CONFUSION TECHNIQUE: Noncontrast 4.5 mm thick angled axial sections acquired from the foramen magnum to the vertex. For r adiation dose reduction, the following was used: automated exposure control, adjustment of mA and/or kV according to patient size. COMPARISON: CT head without, 06/07/2018. FINDINGS: Image quality: Excellent. CSF spaces: Basal cisterns are patent. No extra-axial fluid collections. Ventricles are normal in size and shape. Brain: There is a 1.7 x 2.4 cm hypodensity in the left frontal lobe, compatible with intraparenchyma l bleed. Suspect old traumatic injury or infarction in the left frontal lobe encephalomalacia. There is modera te cerebral volume loss. Moderate periventricular white matter chronic small vessel ischemic changes are present. No midline shift. Skull and face: Calvarium and visualized facial bones are intact, without suspicious lesions. Sinuses: Visualized sinuses and mastoids are clear. IMPRESSION: 1. Left frontal intraparenchymal bleed. 2. The patient was sent to the ER for further evaluation. I discussed results with Dr. Grimaldo. Reviewed by: Melvina Raines MD on 01/27/2023 5:30 PM PDT Approved by: Melvina Raines MD on 01/27/2023 5:30 PM PDT Station ID: [id number]
== END 2023-01-27 16:55 | disposition home or self-care (01) ==
LOC: DI 16:54
PROVIDERS: ATTEND Physician Assistant Medical
DX: R41.0 Disorientation, unspecified (principal); I61.9 Nontraumatic intracerebral hemorrhage, unspecified

== ENCOUNTER 2023-01-27 17:29 | Inpatient (IN) | payer MEDICARE, OTHER ==
[2023-01-27 18:02] LABS: BASOPHILS % (AUTO) 0.4 %; EOSINOPHILS # (AUTO) 0.2 10^3/uL (0.0-0.7); EOSINOPHILS % (AUTO) 3.5 %; HCT - HEMATOCRIT 43.6 % (42.0-52.0); HGB - HEMOGLOBIN 14.7 g/dL (14.0-18.0); LYMPHOCYTES % (AUTO) 20.2 %; MEAN CORPUSCULAR HEMOGLOBIN 30.8 pg (27.0-31.0); MEAN CORPUSCULAR HGB CONC 33.7 g/dL (32.0-36.0); MEAN CORPUSCULAR VOLUME 91.4 fL (80.0-94.0); MEAN PLATELET VOLUME 9.7 fL (7.4-11.4); MONOCYTES # (AUTO) 0.5 10^3/uL (0.0-1.0); MONOCYTES % (AUTO) 10.2 %; NEUTROPHILS # (AUTO) 3.3 10^3/uL (1.5-6.6); NEUTROPHILS % (AUTO) 65.1 %; PLT - PLATELET COUNT 230 10^3/uL (130-450); RED BLOOD COUNT 4.77 10^6/uL (4.70-6.10); WHITE BLOOD COUNT 5.1 x10^3/uL (4.8-10.8)
[2023-01-27 18:10] LABS: PT - PROTHROMBIN TIME 10.5 secs (9.9-12.6)
[2023-01-27 18:13] LABS: ALBUMIN 3.8 g/dL (3.2-5.5); ALBUMIN/GLOBULIN RATIO 1.2 (1.0-2.2); BILIRUBIN,TOTAL 0.6 mg/dL (0.2-1.0); CALCIUM 8.8 mg/dL (8.5-10.3); CREATININE 1.1 mg/dL (0.6-1.2); POTASSIUM 4.1 mmol/L (3.5-5.0); TOTAL PROTEIN 7.1 g/dL (6.7-8.2)
--- NOTE | 2023-01-27 21:14 | ED Physician Documentation ---
History of Present Illness - Stated complaint Stated Complaint: BRAIN BLEED - Chief complaint Chief Complaint: Neuro - History obtained from History obtained from: Patient, Family (Patient's ) - Additonal information Additional information: Patient is a 72-year-old male presenting for evaluation of abnormal head CT that was done in the outpatient setting. Per his he has been confused over the past month. They changed his Ritalin to Adderall at the beginning of the month and that they attributed his confusion to medication change. He has been more forgetful, at times forgetting to eat, doing odd things such as squirting Afrin into his mouth. Patient is a retired physician. He was seen by his PCP yesterday and an outpatient CT was ordered. Outpatient CT shows a left frontal intraparenchymal hemorrhage.Patient does not take any blood thinners. He does not take aspirin regularly. Per he occasionally uses aspirin but she does not believe he has had it recently. He has otherwise been active such as mowing the lawn today.Patient and deny head injury or trauma. Review of Systems Constitutional: denies: Fever Respiratory: denies: Dyspnea GI: denies: Abdominal Pain Neurologic: denies: Syncope, Head injury PD PAST MEDICAL HISTORY - Past Medical History Cardiovascular: High cholesterol, Atrial fibrillation Neuro: Head injury GI: Other : Benign prostate hypertrophy HEENT: Chronic sinusitis Musculoskeletal: Osteopenia, Chronic back pain - Past Surgical History Past Surgical History: Yes Ortho: Other Cardiovascular: Coronary stent Neuro: Other - Present Medications Home Medications: Ambulatory Orders Medication Instructions Recorded Confirmed Acyclovir [Zovirax] 800 mg PO DAILY PRN 05/29/17 01/27/23 Ibuprofen 800 mg PO Q8HR PRN 05/29/17 01/27/23 Multivitamin [Multiple Vitamins] 1 tab PO DAILY 06/07/18 01/27/23 traZODone [Desyrel] 50 mg PO HS 06/07/18 01/27/23 Aspirin [Diego] 325 mg PO DAILY 01/27/23 01/27/23 - Allergies Allergies/Adverse Reactions: Allergies Allergy/AdvReac Type Severity Reaction Status Date / Time Sulfa (Sulfonamide Allergy Unknown Verified 01/27/23 17:34 Antibiotics) niacin AdvReac Unknown Verified 01/27/23 17:34 Balizvu-OAB-AkQ Reductase AdvReac Unknown Verified 01/27/23 17:34 Inhibitor [Enenkwh-Gfa-Kuy Reductase Inhibitor] - Social History Does the pt smoke?: No Smoking Status: Never smoker Does the pt drink ETOH?: Yes Does the pt have substance abuse?: No - Immunizations Immunizations are current?: Yes PD ED PE NORMAL - General General: Alert and oriented X 3, No acute distress, Well developed/nourished - HEENT HEENT: Atraumatic, PERRL, EOMI - Neck Neck: Supple, no meningeal sign - Cardiac Cardiac: RRR, No murmur - Respiratory Respiratory: No respiratory distress, Clear bilaterally - Abdomen Abdomen: Soft, Non tender, Non distended - Derm Derm: Warm and dry - Extremities Extremities: No edema - Neuro Neuro: Alert and oriented X 3, 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, No sensory deficit, Normal speech, Other (Mild weakness to left leg compared to right) Eye Opening: Spontaneous Motor: Obeys Commands Verbal: Oriented GCS Score: 15 Results - Vitals Vitals: Vital Signs - 24 hr 01/27/23 01/27/23 01/27/23 17:36 18:00 18:30 Temperature 36.2 C L Heart Rate 59 L 53 L 52 L Respiratory 16 20 17 Rate Blood Pressure 116/71 135/83 H 131/84 H O2 Saturation 98 100 100 01/27/23 01/27/23 01/27/23 19:30 20:00 20:30 Temperature Heart Rate 53 L 52 L 53 L Respiratory 17 Rate Blood Pressure 139/83 H 146/83 H 144/95 H O2 Saturation 99 100 100 01/27/23 01/27/23 21:00 22:30 Temperature Heart Rate 54 L 47 L Respiratory 16 14 Rate Blood Pressure 145/87 H 132/84 H O2 Saturation 100 97 Oxygen O2 Source Room air - EKG (time done) 1756 EKG releavant findings:: EKG personally interpreted by author of this note. Relevant findings are: Rate 54, sinus bradycardia, no STEMI, Rate: Rate (enter#) Rhythm: Sinus bradycardia Intervals: No: Prolonged QT Ischemia: No: ST elevation c/w ischemia - Labs Labs: Laboratory Tests 01/27/23 01/27/23 01/27/23 17:52 17:52 17:52 WBC 5.1 RBC 4.77 Hgb 14.7 Hct 43.6 MCV 91.4 MCH 30.8 MCHC 33.7 RDW 12.0 Plt Count 230 MPV 9.7 Neut # (Auto) 3.3 Lymph # (Auto) 1.0 L [place] # (Auto) 0.5 Eos # (Auto) 0.2 Baso # (Auto) 0.0 Absolute Nucleated RBC 0.00 Nucleated RBC % 0.0 PT 10.5 INR 1.0 Sodium Potassium Chloride Carbon Dioxide Anion Gap BUN Creatinine Estimated GFR (MDRD) Glucose Calcium Total Bilirubin AST ALT Alkaline Phosphatase Total Protein Albumin Globulin Albumin/Globulin Ratio Blood Type O POSITIVE Blood Type Recheck Antibody Screen NEGATIVE 01/27/23 01/27/23 17:52 18:47 WBC RBC Hgb Hct MCV MCH MCHC RDW Plt Count MPV Neut # (Auto) Lymph # (Auto) [place] # (Auto) Eos # (Auto) Baso # (Auto) Absolute Nucleated RBC Nucleated RBC % PT INR Sodium 139 Potassium 4.1 Chloride 108 Carbon Dioxide 27 Anion Gap 4.0 L BUN 19 Creatinine 1.1 Estimated GFR (MDRD) 66 L Glucose 76 Calcium 8.8 Total Bilirubin 0.6 AST 20 ALT 13 Alkaline Phosphatase 49 Total Protein 7.1 Albumin 3.8 Globulin 3.3 Albumin/Globulin Ratio 1.2 Blood Type Blood Type Recheck O POSITIVE Antibody Screen PD Medical Decision Making - ED course Complexity details: reviewed results, re-evaluated patient, d/w patient, d/w family ED course: Pt with recent behavioral changes and at times confusion sent for outpatient Ct which shows intraparenchymal hemorrhage. Mild weakness noted to L leg but has had issues with that leg before per . Not on blood thinners. [facility] consulted. Repeat CT after 4 hrs unchanged and pt without any changes. [facility] Neurology recommends admission for BP monitoring and MRI to evaluate for underlying amyloid angiopathy. CBC, coags, chemistries reviewed without significant abnormalities. pt admitted to tele hospitalist. 1810 - Discussed with Dr. Harris, (stroke neurology at [facility]). She has reviewed the images. She recommends repeating the head CT in 4 hours. Does not feel that this requires neurosurgical intervention. She has concern for underlying process such as cerebral amyloid angiopathy And recommends doing an MRI after the CT scan. They are unfortunately not able to accept patients in transfer at this time and does not feel pt needs transfer unless repeat CT changes. She is on-call until tomorrow morning so recommends calling back if there are any questions or changes. [id number] - Reviewed viewed repeat CT with Dr. Stone, stroke at [facility]. She recommends continuing to keep him in the hospital overnight for observation to make sure that his blood pressure stays below 160. Pt does not require transfer to [facility]. She also recommends an MRI. She does not recommend sending him home to do an outpatient MRI. Also PT/OT. Departure - Departure Disposition: ED Place in Observation Clinical Impression: Intraparenchymal hemorrhage of brain Condition: Stable Discharge Date/Time: 01/27/23 23:23 NIHSS - Level of Consciousness Level of consciousness: (0) Alert, Keenly responsive LOC Questions: (0) Answers both Q's correct LOC Commands: (0) Performs both correctly - Gaze Best Gaze: (0) Normal - Visual Visual: (0) No loss - Facial Palsy Facial Palsy: (0) Normal, symmetrical movement - Motor Arms (both separate) Motor Arm (right): (0) No drift Motor Arm (left): (0) No drift - Motor Legs (both separate) Motor Leg (right): (0) No drift Motor Leg (left): (1) Drift - Limb Ataxia Limb Ataxia: (0) Absent - Sensory Sensory: (0) Normal - Best Language Best Language: (0) No aphasia - Dysarthria Dysarthria: (0) Normal - Extinction and Inattention (formally neg Extinction and inattention: (0) No abnormality - Total Score/Results Total Score/Result: 1
--- NOTE | 2023-01-27 21:41 | CT Report ---
PROCEDURE: HEAD WO INDICATIONS: IPH/ repeat in 4 hrs TECHNIQUE: Noncontrast 4.5 mm thick angled axial sections acquired from the foramen magnum to the vertex. For r adiation dose reduction, the following was used: automated exposure control, adjustment of mA and/or kV according to patient size. COMPARISON: CT head 01/27/2023. FINDINGS: Image quality: Excellent. The ventricular system and cortical sulci demonstrate atrophy, consistent for patient's stated age. There are areas of hypodensity in the periventricular and subcortical white matter. There is no acut e intra or extra-axial fluid collection. As identified on prior exam, left frontal hyperdensity is pr esent, unchanged. Brainstem is unremarkable. Globes are symmetrical. Sinuses are aerated. Osseous st ructures are intact. IMPRESSION: Unchanged appearance of left frontal hyperdensity most suggestive of intraparenchymal hemorrhage. Moderate atrophy and chronic microvascular ischemic changes. Reviewed by: Devorah Painting MD on 01/27/2023 9:40 PM PDT Approved by: Devorah Painting MD on 01/27/2023 9:40 PM PDT Station ID: [id number]
[2023-01-27] MEDS ORDERED: traZODone 50 MG TABLET PO STA (21:59)
[2023-01-27] MEDS ORDERED: HYDROcod/ACETAM 5/325 MG TABLET PO PRN (22:38)
[2023-01-27] MEDS ORDERED: SODIUM CHLORIDE FLUSH 0.9% 10 ML SYRINGE IVP PRN (22:38)
[2023-01-27] MEDS ORDERED: ONDANSETRON 4 MG/2 ML VIAL IVP PRN (22:38)
--- NOTE | 2023-01-27 22:49 | HISTORY & PHYSICAL EXAMINATION ---
Chief Complaint - Chief Complaint Chief Complaint: Confusion History of Present Illness - History of Present Illness HPI Comment/Other: 72 y old male with PMH HTN, presented to the ER due to confusion. Apparently patient was confused for about a month. His PCP ordered CT head as outpatient which shoiwed intracranial hemorrhage. Pt was referred to the ER. As per ER physician ( Dr Grimaldo), she conulted Stroke neuro at [facility] ( Dr Harris) who recommended to repeat CT head in [address] head was repeated after 4 hours which showed no changes in ICH. As per Dr Grimaldo, she consulted with Stroke neuro at [facility] again ( Dr Stone) who recoomeded that patient does not need any neusurgical internention at this time and she rec to keep p atient in hospital overnight, repeat MRI brain in am and to keep SBP < 160 Pt is alert and awake, able to move all extremities Denies GUERRERO, chest pain or SOB Hospitalsit service was asked to admit this patient due to ICH History - Past Medical History Cardiovascular: reports: High cholesterol, Atrial fibrillation Neuro: reports: Head injury GI: reports: Other : reports: Benign prostate hypertrophy HEENT: reports: Chronic sinusitis Musculoskeletal: reports: Osteopenia, Chronic back pain MRSA Hx?: No - Past Surgical History Ortho: reports: Other Cardiovascular: reports: Coronary stent Neuro: reports: Other Meds/Allgy - Home Medications Home Medications: Ambulatory Orders Medication Instructions Recorded Confirmed Acyclovir [Zovirax] 800 mg PO DAILY PRN 05/29/17 01/27/23 Ibuprofen 800 mg PO Q8HR PRN 05/29/17 01/27/23 Multivitamin [Multiple Vitamins] 1 tab PO DAILY 06/07/18 01/27/23 traZODone [Desyrel] 50 mg PO HS 06/07/18 01/27/23 Aspirin [Diego] 325 mg PO DAILY 01/27/23 01/27/23 - Allergies Allergies/Adverse Reactions: Allergies Allergy/AdvReac Type Severity Reaction Status Date / Time Sulfa (Sulfonamide Allergy Unknown Verified 01/27/23 17:34 Antibiotics) niacin AdvReac Unknown Verified 01/27/23 17:34 Jciyoph-BUL-OjT Reductase AdvReac Unknown Verified 01/27/23 17:34 Inhibitor [Ilbmnby-Cdn-Eye Reductase Inhibitor] Review of Systems - Other Findings Other Findings: 10 point systems were reviewed and were negative except mentiIONED in HPI Exam - Vital Signs Vital Signs: Vital Signs x48h Temp Pulse Resp BP Pulse Ox 01/27/23 20:30 53 L 144/95 H 100 01/27/23 20:00 52 L 146/83 H 100 01/27/23 19:30 53 L 17 139/83 H 99 01/27/23 18:30 52 L 17 131/84 H 100 01/27/23 18:00 53 L 20 135/83 H 100 01/27/23 17:36 36.2 C L 59 L 16 116/71 98 - Physical Exam General Appearance: positive: No acute distress Eyes Bilateral: positive: Normal inspection ENT: positive: ENT inspection nml Respiratory: positive: Breath sounds nml Cardiovascular: positive: Regular rate & rhythm Abdomen: positive: Non-tender, Nml bowel sounds Skin: positive: No rash Extremities: positive: No pedal edema Neurologic/Psychiatric: positive: Oriented x3, Motor nml Conclusion/Plan - Lab Results Fish Bones: 01/27/23 17:52 01/27/23 17:52 - Other Other Results/Comments: A: ICH Confusion HLP Backache PLan: Jameson in ICU MRI brain with and WO contrast in am neuro checks Monitor BP closely and keep SBP to be less than 160 supportive care DVT prophylaxic : SCD Full code patient is admitted as inpatient as more than 2 midnight stay is expected
[2023-01-28] MEDS: SODIUM CHLORIDE FLUSH 0.9% 10 ML SYRINGE IVP SCH ×2 (01:38→09:10)
--- NOTE | 2023-01-28 10:38 | PHARMACY PROGRESS NOTE ---
- Best Possible Medication History Admit Date and Time: 01/27/23 7692 Processed by: Pharmacy Medication History completed: Yes Patient Interview: Completed Secondary Source(s): Spouse/Significant other, Pharmacy records As the person ultimately responsible for medication therapy, providers are able to order a medication from an existing home medication list in [facility] via the "Reconcile Routine" prior to Confirmation of that medication by technical support 1 software engineer. Such practice is discouraged except when the physician, in their clinical judgment, deems that a medical need exists for a medication without regard to previous use.
[2023-01-28] MEDS ORDERED: GADOBUTROL 7.5 MMOL/7.5 ML VIAL IVP ONE (12:30)
[2023-01-28] MEDS ORDERED: GADOBUTROL 7.5 MMOL/7.5 ML VIAL ONE (12:30)
--- NOTE | 2023-01-28 13:14 | MRI Report ---
PROCEDURE: BRAIN W/WO INDICATIONS: Intracranial hemorrhage CONTRAST: gadavist 6.5ml TECHNIQUE: Noncontrast axial T1 spin echo, axial T2 fast spin echo, sagittal and axial FLAIR, coronal T2 fast sp in echo, axial gradient echo, axial diffusion and ADC through the brain. After the administration of contrast, axial and coronal T1 spin echo with fat saturation through the brain. COMPARISON: Head CT 01/27/2023 FINDINGS: Image quality: Excellent. CSF spaces: Basal cisterns are patent. No extra-axial fluid collections. Ventricles are normal in size and shape, accounting for age-related volume loss. Brain: In the left anterior frontal lobe, there is a 3.4 x 2.5 cm region which demonstrates T2 hyperi ntense signal, peripheral T1 hyperintense without definitive rim enhancement, restricted diffusion an d small degree of mass effect. Internal susceptibility weighted blooming artifact. Along the lateral margin, there is additional linear T1 hyperintense signal (series 16, image 149). 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 Leukoaraiosis, commonly caused by chronic small vessel ischemic disease. Age-related volume loss. Diffuse blooming artifact also noted. Skull and face: Calvarial marrow is normal in signal. Orbits appear normal. Sinuses: Nodular thickening of the maxillary sinuses. IMPRESSION: 3.4 x 2.5 cm region of T2 hyperintense signal, without definitive rim enhancement and restricted diff usion within the left frontal lobe, with mild mass effect upon the adjacent sulci. There is significa nt blooming artifact on susceptibility weighted imaging, suggestive of hemorrhage in the setting of a myloid angiopathy. Underlying mass less likely. No midline shift. No herniation. Sequela of left FRANCIS and MCA territory infarcts. Reviewed by: Ramirez Braswell on 01/28/2023 1:12 PM PDT Approved by: Ramirez Braswell on 01/28/2023 1:12 PM PDT Station ID: [id number]
--- NOTE | 2023-01-28 16:03 | Discharge Plan ---
Discharge Plan Problem Reviewed?: Yes Disposition: Home, Self Care Condition: Poor Diet: Low Sodium Activity Restrictions: Activity as Tolerated Shower Restrictions: No Driving Restrictions: Yes (Restricted from driving ) Health Concerns: The patient was hospitalized after a CT of the brain showed a brain hemorrhage. This was done after having 2 to 3 weeks of intermittent confusion. Today the patient had a brain MRI which showed presence of 2 old strokes, one on the right and one on the left, and findings of hemorrhage in the setting of Amyloid angiopathy. This brain MRI and report was reviewed by neurologist Dr. Moe from [facility] and she recommended the following: No aspirin or aspirin-like products or anticoagulants to be used ever. No driving. Follow-up should be with a neurologist at the [facility] stroke clinic. Continued good blood pressure control is advised. She did say that this disease will likely lead to more brain bleeds which could be symptomatic, and sometimes the symptoms could look like seizures. The disease course is different for every patient and there is no specific treatment or cure. You are respectfully requested to cease driving a vehicle. Please remember to not use any aspirin or blood thinners lifelong now. I personally recommend using the least amount of sedatives possible, to decrease somnolence, which could lead to confusion. Please get an appointment at the [facility] [place]. Plan of Treatment: As above. Care Goals: Improvement in symptoms and stabilization are the goals. Assessment: The patient and understand and are agreeable with the plan. Additional Instructions or Follow Up instructions: If you have new or worsening symptoms, call your PCP or Neurologist for advice, or come to an ER. No Smoking: If you smoke, Please STOP! Call for help. Follow-up with: Dusty Hawkins MD [Primary Care Provider] -
--- NOTE | 2023-01-28 16:11 | DISCHARGE SUMMARY ---
Discharge Summary Admit Date: 01/27/23 Discharge Date: 01/28/23 Discharging Provider: Dr Debi Nielsen Primary Care Provider: Dr Dusty Hawkins Condition at Discharge: Poor Discharge Disposition: 01 Home, Self Care - HPI History of Present Illness: 72 y old male with PMH HTN, presented to the ER due to confusion. Apparently patient was confused for about a month. His PCP ordered CT head as outpatient which shoiwed intracranial hemorrhage. Pt was referred to the ER. As per ER physician ( Dr Grimaldo), she conulted Stroke neuro at [facility] ( Dr Harris) who recommended to repeat CT head in [address] head was repeated after 4 hours which showed no changes in ICH. As per Dr Grimaldo, she consulted with Stroke neuro at [facility] again ( Dr Stone) who recomeded that patient does not need any neurosurgical internention at this time and she rec to keep patient in hospital overnight, repeat MRI brain in a.m. and to keep SBP < 160 Pt is alert and awake, able to move all extremities. Denies GUERRERO, chest pain or SOB Hospitalsit service was asked to admit this patient due to ICH - HOSPITAL COURSE Hospital Course: 1) Intracranial hemorrhage This was noted on CT imaging. The repeat brain imaging with an MRI, which he had the next day, did not show any progression of the hemorrhage. He was told to re main off aspirin, NSAIDs and anticoagulants. He was discharged home under the care of his . 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 I called the same Neurologist (Dr Stone) and obtained information and advice which was then discussed with the patient and his at bedside. The Neurolo gist stated that there is no cure for this and that more hemorrhages are to be expected. More hemorrhages may cause symptoms that appear to be seizures, but are not seizures, and no anti-epileptic meds or EEG will be needed. The patient was advised to establish with a Neurologist at the Stroke Center where he can be followed with this rare diagnosis. 3) Confusion He had significant ongoing confusion and a very poor memory. He and the were advised that he may no longer drive, and a DMV form with a driving restriction for medical reasons was submitted. 4) CAD As per Hx. Unfortunately, anti-platelet and anti-coagulants are now contra-i ndicated. 5) Hx TBI The described his TBI, which occurred several years ago. He needed to be hospitalized for a long time, then with rehab, had to basically "relearn how to walk". - ALLERGIES Allergies/Adverse Reactions: Allergies Allergy/AdvReac Type Severity Reaction Status Date / Time Sulfa (Sulfonamide Allergy Unknown Verified 01/27/23 17:34 Antibiotics) niacin AdvReac Mild Unknown Verified 01/28/23 09:19 Axkjsmp-KKH-RgD Reductase AdvReac Unknown Verified 01/28/23 09:18 Inhibitor [Smljupk-Vvq-Hvw Reductase Inhibitor] - MEDICATIONS Home Medications: Ambulatory Orders Medication Instructions Recorded Confirmed Acyclovir [Zovirax] 800 mg PO DAILY PRN 05/29/17 01/27/23 Multivitamin [Multiple Vitamins] 1 tab PO DAILY 06/07/18 01/27/23 traZODone [Desyrel] 50 mg PO HS 06/07/18 01/27/23 Acetaminophen [Tylenol] 2 tab PO QID PRN 01/28/23 01/28/23 - PHYSICAL EXAM AT DISCHARGE General Appearance: positive: No acute distress, Alert Eyes Bilateral: positive: Normal inspection, EOMI ENT: positive: No signs of dehydration Neck: positive: Nml inspection, No JVD Respiratory: positive: No respiratory distress, Breath sounds nml Cardiovascular: positive: Regular rate & rhythm, No murmur Abdomen: positive: Non-tender, Nml bowel sounds, No distention Skin: positive: Warm, Dry Extremities: positive: Non-tender, No pedal edema Neurologic/Psychiatric: positive: CN's nml (2-12), Disoriented to person, Disoriented to place, Disoriented to time - LABS Result Diagrams: 01/27/23 17:52 01/27/23 17:52 - DIAGNOSTIC IMAGING Diagnostic Imaging Results: Final report reviewed - FOLLOW UP Follow Up: Patient needs to establish with a Neurologist for follow-up. - TIME SPENT Time Spent in Discharge (Minutes): 30
[2023-01-28 16:26] VITALS: BP 121/84
[2023-01-29] MEDS ORDERED: MULTIVITAMIN W/MINERALS TABLET PO SCH (09:00)
== END 2023-01-28 16:20 | disposition home or self-care (01) | DRG 65 ==
LOC: ED 17:29 → ICU 22:38
PROVIDERS: ADMIT Internal Medicine; ATTEND Internal Medicine
DX: I61.9 Nontraumatic intracerebral hemorrhage, unspecified (principal); E85.4 Organ-limited amyloidosis; R00.1 Bradycardia, unspecified; R41.0 Disorientation, unspecified; R29.701 NIHSS score 1; I10 Essential (primary) hypertension; I68.0 Cerebral amyloid angiopathy; I25.10 Atherosclerotic heart disease of native coronary artery without angina pectoris; E78.00 Pure hypercholesterolemia, unspecified; N40.0 Benign prostatic hyperplasia without lower urinary tract symptoms; G89.29 Other chronic pain; M54.9 Dorsalgia, unspecified; M85.80 Other specified disorders of bone density and structure, unspecified site; Z79.899 Other long term (current) drug therapy; Z87.820 Personal history of traumatic brain injury; Z95.5 Presence of coronary angioplasty implant and graft
CPT/HCPCS: 36415; 70450; 70553; 80053; 85025; 85610; 86850; 86900; 86901; 87150; 93005; 97161; 97165; 99285; A9270; A9585